=== PATIENT | male | born 1975 | race Caucasian/White ===

== ENCOUNTER → 2016-09-15 | Outpatient (CLI) | payer BC ==
--- NOTE | 2016-09-15 11:58 | Diagnostic Imaging Report ---
EXAMINATION: Three views of the right knee. INDICATION: Right knee pain. FINDINGS: There is no fracture, dislocation, or radiopaque foreign body. No arthritic changes seen. No suprapatellar effusion. IMPRESSION: Unremarkable exam. Dictated by: Dictated on workstation # [id number]
== END ==
LOC: RAD 09:07
PROVIDERS: ATTEND Nurse Practitioner Family
DX: M25.561 Pain in right knee (principal)
CPT/HCPCS: 73562

== ENCOUNTER → 2018-06-09 | Outpatient (CLI) | payer BC ==
--- NOTE | 2018-06-09 17:09 | Diagnostic Imaging Report ---
PROCEDURE: US right lower extremity venous. TECHNIQUE: Multiple real-time grayscale images were obtained over the right lower extremity in various projections. Additional spectral analysis and color Doppler duplex images were also obtained. INDICATION: Right lower extremity swelling and numbness. Evaluate for DVT. COMPARISON: None available. FINDINGS: The visualized deep venous structures of the right lower extremity demonstrate normal compression, flow, and augmentation. IMPRESSION: No evidence of DVT. Dictated by: Dictated on workstation # [id number]
== END ==
LOC: RAD 16:43
PROVIDERS: ATTEND Nurse Practitioner Family
DX: R22.41 Localized swelling, mass and lump, right lower limb (principal); R20.0 Anesthesia of skin

== ENCOUNTER → 2019-06-27 | Outpatient (CLI) | payer BC | LOC: CARD 13:02 | PROVIDERS: ATTEND Nurse Practitioner Family | DX: I51.7 Cardiomegaly (principal) | CPT/HCPCS: 93306 ==

== ENCOUNTER → 2021-04-05 | Outpatient (REF) ==
--- NOTE | 2021-04-05 12:50 | Diagnostic Imaging Report ---
CLINICAL INDICATION: Patient with knee pain. EXAM: X-ray of the right knee, three views. COMPARISON: X-ray of the right knee dated 09/15/2016. FINDINGS: There is no acute fracture or dislocation. There is interval [id number] medial compartment narrowing. There is no significant narrowing of the lateral compartment. There is interval progression of mild hypertrophic spurring of the patella at the quadriceps attachment and patellar ligament attachment. There is a small right knee effusion, which has slightly progressed. There is spurring of the tibial tuberosity region. IMPRESSION: 1: There is progression of degenerative disease of the right knee, as described above. 2: There is development of a small right knee effusion of unknown etiology. Dictated by: Dictated on workstation # [id number]
== END ==
LOC: OCC 12:13
PROVIDERS: ATTEND Family Medicine
DX: M25.561 Pain in right knee (principal)
CPT/HCPCS: 73562

== ENCOUNTER → 2021-04-24 | Outpatient (REF) ==
--- NOTE | 2021-04-24 10:18 | Diagnostic Imaging Report ---
INDICATION: Knee pain status post injury. EXAMINATION: Right knee MRI without contrast on 04/24/2021. FINDINGS: The extensor mechanism is intact. The ACL and PCL are intact. The MCL is intact. There is diffuse edema surrounding the lateral aspect of the knee, predominantly surrounding the lateral collateral ligament proper and portions of the iliotibial band. The findings are likely due to a strain of the lateral collateral ligament. No discontinuity is appreciated. The biceps femoris tendon is intact. The medial and lateral menisci appear intact. Cartilage in the medial and lateral joint compartments appears maintained. The patellofemoral cartilage is preserved. There is a small joint effusion. There is a small Napier's cyst. IMPRESSION: 1. Findings consistent with a sprain of the lateral collateral ligament with surrounding edema which involves portions of the distal iliotibial band which is intact. The remaining ligaments and tendons are intact. 2. The menisci are intact. Dictated by: Dictated on workstation # [id number]
== END ==
LOC: OCC 09:24
PROVIDERS: ATTEND Family Medicine
DX: M25.561 Pain in right knee (principal)
CPT/HCPCS: 73721